=== PATIENT | female | born 1995 | race Caucasian/White ===

== ENCOUNTER 2017-08-01 14:40 | Inpatient (IN) | payer OTHER, SELFPAY ==
[2017-08-04 19:19] VITALS: BP 107/68; PULSE 100; RESP 16; TEMP 37.3; O2SAT 100; BMI 27.8
--- NOTE | 2017-08-05 10:21 | HMH.DCSUM ---
General - General Admission date: 08/01/17 Discharge date: 08/05/17 HPI HPI: She is a 22-year-old 1 now para 1 who was 40 weeks gestational age. She was started on Cervidil and subsequently to progress beyond 6 cm. As results that she had a section for pelvic disproportion. Objective Vital signs: Temp Pulse Resp BP Pulse Ox 99.1 F 100 H 16 107/68 100 08/04/17 19:19 08/04/17 19:19 08/04/17 19:19 08/04/17 19:19 08/04/17 19:19 Narrative: She appears well although somewhat pale. She is eating and drinking and ambulating Hospital Course Hospital Course: She has done well post operatively and has remained afebrile throughout her hospitalization. She is eating and drinking and ambulating. She is breast-feeding. Her lochia is normal. Results Labs on day of discharge: Labs from last 24 hours 08/03/17 08/02/17 08/02/17 06:00 16:00 09:20 WBC RBC Hgb 9.6 L D Hct 29.0 L MCV RDW Plt Count MPV Gran % Gran # Lymphocytes % Monocytes % Eosinophils % Basophils % Lymphocytes # Monocytes # Eosinophils # Basophils # PUBS MCHC Cord Blood pH 7.32 L Sodium Potassium Chloride Carbon Dioxide BUN Creatinine Estimated GFR (MDRD) Glucose Calcium Urine Color YELLOW Urine Appearance SL CLOUDY Urine pH 6.5 Ur Specific [place] 1.010 Urine Protein NEGATIVE Urine Ketones NEGATIVE Urine Blood TRACE-INTACT Urine Nitrate NEGATIVE Urine Bilirubin NEGATIVE Urine Urobilinogen 0.2 Ur Leukocyte Esterase NEGATIVE Urine RBC OCC Urine WBC OCC Ur Squamous Epith Cells OCC Urine Bacteria TRACE Urine Glucose NEGATIVE Antibody Screen MCH Miscellaneous Test Blood Type (Ref Lab) 08/01/17 08/01/17 08/01/17 17:45 17:45 17:45 WBC 8.9 RBC 4.14 L Hgb 12.4 Hct 36.8 L MCV 88.8 RDW 14.3 Plt Count 179 D MPV 9.8 Gran % 77.5 Gran # 6.9 Lymphocytes % 16.6 Monocytes % 4.5 Eosinophils % 1.0 Basophils % 0.3 Lymphocytes # 1.5 Monocytes # 0.4 Eosinophils # 0.1 Basophils # 0.0 PUBS MCHC 33.7 Cord Blood pH Sodium 137 Potassium 3.6 Chloride 103 Carbon Dioxide 23 BUN 8 Creatinine 0.5 L Estimated GFR (MDRD) 153 Glucose 104 Calcium 8.8 Urine Color Urine Appearance Urine pH Ur Specific [place] Urine Protein Urine Ketones Urine Blood Urine Nitrate Urine Bilirubin Urine Urobilinogen Ur Leukocyte Esterase Urine RBC Urine WBC Ur Squamous Epith Cells Urine Bacteria Urine Glucose Antibody Screen NEGATIVE MCH 30.0 Miscellaneous Test POSITIVE Blood Type (Ref Lab) A Meds Home Medications Medication Instructions Recorded Confirmed Type Vits96/Iron Fum/Folic 1 tab PO DAILY 08/04/17 08/04/17 History [ MVI w/Iron Tablet] Allergies Allergy/AdvReac Type Severity Reaction Status Date / Time ciprofloxacin [From CIPRO] Allergy Severe S-DIFF. Verified 08/04/17 18:22 BREATHING peanut Allergy Severe Hives Verified 08/04/17 18:22 diphenhydramine Allergy Unknown Hives Verified 08/04/17 18:22 Disposition Disposition: Home, Self-Care
--- NOTE | 2017-08-05 10:24 | P.DS_ITS ---
General - General Admission date: 08/01/17 Discharge date: 08/05/17 HPI HPI: She is a 22-year-old 1 now para 1 who was 40 weeks gestational age. She was started on Cervidil and subsequently to progress beyond 6 cm. As results that she had a section for pelvic disproportion. Objective Vital signs: Temp Pulse Resp BP Pulse Ox 99.1 F 100 H 16 107/68 100 08/04/17 19:19 08/04/17 19:19 08/04/17 19:19 08/04/17 19:19 08/04/17 19:19 Narrative: She appears well although somewhat pale. She is eating and drinking and ambulating Hospital Course Hospital Course: She has done well post operatively and has remained afebrile throughout her hospitalization. She is eating and drinking and ambulating. She is breast- feeding. Her lochia is normal. Results Labs on day of discharge: Labs from last 24 hours 08/03/17 08/02/17 08/02/17 06:00 16:00 09:20 WBC RBC Hgb 9.6 L D Hct 29.0 L MCV RDW Plt Count MPV Gran % Gran # Lymphocytes % Monocytes % Eosinophils % Basophils % Lymphocytes # Monocytes # Eosinophils # Basophils # PUBS MCHC Cord Blood pH 7.32 L Sodium Potassium Chloride Carbon Dioxide BUN Creatinine Estimated GFR (MDRD) Glucose Calcium Urine Color YELLOW Urine Appearance SL CLOUDY Urine pH 6.5 Ur Specific [place] 1.010 Urine Protein NEGATIVE Urine Ketones NEGATIVE Urine Blood TRACE-INTACT Urine Nitrate NEGATIVE Urine Bilirubin NEGATIVE Urine Urobilinogen 0.2 Ur Leukocyte Esterase NEGATIVE Urine RBC OCC Urine WBC OCC Ur Squamous Epith Cells OCC Urine Bacteria TRACE Urine Glucose NEGATIVE Antibody Screen MCH Miscellaneous Test Blood Type (Ref Lab) 08/01/17 08/01/17 08/01/17 17:45 17:45 17:45 WBC 8.9 RBC 4.14 L Hgb 12.4 Hct 36.8 L MCV 88.8 RDW 14.3 Plt Count 179 D MPV 9.8 Gran % 77.5 Gran # 6.9 Lymphocytes % 16.6 Monocytes % 4.5 Eosinophils % 1.0 Basophils % 0.3 Lymphocytes # 1.5 Monocytes # 0.4 Eosinophils # 0.1 Basophils # 0.0 PUBS MCHC 33.7 Cord Blood pH Sodium 137 Potassium 3.6 Chloride 103 Carbon Dioxide 23 BUN 8 Creatinine 0.5 L Estimated GFR (MDRD) 153 Glucose 104 Calcium 8.8 Urine Color Urine Appearance Urine pH Ur Specific [place] Urine Protein Urine Ketones Urine Blood Urine Nitrate Urine Bilirubin Urine Urobilinogen Ur Leukocyte Esterase Urine RBC Urine WBC Ur Squamous Epith Cells Urine Bacteria
== END 2017-08-05 13:30 | disposition home or self-care (01) | DRG 765 ==
PROVIDERS: Admitting Provider Nurse Practitioner Obstetrics & Gynecology; Visit Provider Nurse Practitioner Obstetrics & Gynecology
DX: O65.4 Obstructed labor due to fetopelvic disproportion, unspecified (principal); O41.03X0 Oligohydramnios, third trimester, not applicable or unspecified; Z37.0 Single live birth; Z3A.40 40 weeks gestation of pregnancy
CPT/HCPCS: 59514; 36415; 59025; 80048; 81001; 82800; 85014; 85018; 85025; 86850; 86900; 86901

== ENCOUNTER → 2017-12-27 08:55 | Outpatient (CLI) | payer OTHER, SELFPAY ==
[2017-12-27 09:32] LABS: Basophils # 0.1 K/mm3 (0-0.2); Basophils % 0.8 % (0.1-2.0); Eosinophils # 0.1 K/mm3 (0.0-0.4); Eosinophils % 1.6 % (0.1-12.0); Hematocrit 44.1 % (37.0-47.0); Hemoglobin 13.7 g/dL (12.2-16.2); Lymphocytes # 1.9 K/mm3 (0.7-4.5); Lymphocytes % 25.3 K/mm3 (10-50); Mean Corpuscular HGB Conc 31.2 g/dL (31.8-35.4); Mean Corpuscular Hemoglobin 26.5 pg (27.0-31.2); Mean Corpuscular Volume 84.9 fl (81-99); Mean Platelet Volume 7.6 fl (7.4-10.4); Monocytes # 0.4 K/mm3 (0.1-1.0); Monocytes % 4.9 % (1.7-9.3); Neutrophils # 5.1 K/mm3 (1.8-7.8); Neutrophils % 67.4 % (37.0-80.0); Platelet Count 334 K/mm3 (142-424); Red Blood Count 5.19 M/mm3 (4.20-5.40); Red Cell Distribution Width 13.8 % (11.5-17.5); White Blood Count 7.6 K/mm3 (4.8-10.8)
[2017-12-27 10:52] LABS: Alanine Aminotransferase 20 U/L (12-78); Albumin Level 4.7 gm/dL (3.4-5.0); Albumin/Globulin Ratio 1.4 (1.1-1.8); Alkaline Phosphatase 81 U/L (46-116); Anion Gap 15.1 mEq/L (5-15); Aspartate Amino Transferase 10 U/L (15-37); Bilirubin,Total 0.5 mg/dL (0.2-1.0); Blood Urea Nitrogen 10 mg/dL (7-18); Calcium 10.1 mg/dL (8.5-10.1); Carbon Dioxide 26 mmol/L (21.0-32.0); Chloride 104 mmol/L (98-107); Creatinine,Serum 0.64 mg/dL (0.55-1.02); Estimated Glomerular Filt Rate 115 ml/min (>60); GFR (African American) 139 ML/MIN (>60); Globulin 3.3 gm/dl (1.3-3.2); Glucose 85 mg/dL (74-106); Lipase 139 u/L (73-393); Potassium 4.1 mmoL/L (3.5-5.1); Sodium 141 mmol/L (136-145)
[2017-12-28 19:42] LABS: C difficile Toxins AB, EIA Negative (Negative)
[2017-12-31 15:55] LABS: H. pylori Breath Test Negative (Negative)
== END ==
PROVIDERS: Visit Provider Nurse Practitioner Family
DX: R10.84 Generalized abdominal pain (principal)
CPT/HCPCS: 36415; 80053; 83013; 83690; 85025; 87045; 87324

== ENCOUNTER → 2018-05-22 14:40 | Outpatient (CLI) | payer OTHER, SELFPAY ==
--- NOTE | 2018-05-22 14:42 | CT_ITS ---
CT head/brain wo con HISTORY: Severe headache ITS.REASON: MIGRAINES ORDERING PHYSICIAN: Anais Valdez PATIENT AGE: 22 years COMPARISON: 01 27 17 TECHNIQUE: Axial images obtained without contrast. Brain and bone windows reviewed. All CT scans at the facility use one or more dose reduction, viz: automated exposure control, ma/kV adjustment per patient size (including targeted exams where dose is matched to indication, i.e. head), or iterative reconstruction technique. FINDINGS: No midline shift, mass effect, intracranial hemorrhage, hydrocephalus, or extra-axial fluid collection is evident. The calvarium has an unremarkable appearance. No mastoid effusion. No sinus air-fluid levels.. IMPRESSION: Negative CT head without contrast. No acute finding
== END ==
PROVIDERS: Family Provider Nurse Practitioner Family; PCP Internal Medicine Adolescent Medicine; Visit Provider Nurse Practitioner Family
DX: G43.909 Migraine, unspecified, not intractable, without status migrainosus (principal)
CPT/HCPCS: 70450

== ENCOUNTER 2018-07-10 09:00 | Outpatient (RCR) | payer OTHER, SELFPAY | END 2018-07-10 09:10 | disposition home or self-care (01) | LOC: PT 09:00 | PROVIDERS: Visit Provider Nurse Practitioner Family | DX: M54.42 Lumbago with sciatica, left side (principal) | CPT/HCPCS: 97110; 97140; 97163 ==

== ENCOUNTER → 2018-11-27 09:38 | Outpatient (CLI) | payer OTHER, SELFPAY ==
--- NOTE | 2018-11-27 09:43 | XR_ITS ---
XR chest 2V HISTORY: ITS.REASON: DYSPNEA ORDERING PHYSICIAN: Anais Valdez PATIENT AGE: 23 years COMPARISON: 08/02/2018 FINDINGS: The cardiomediastinal silhouette and pulmonary vascularity are within normal limits. The lungs are clear without infiltrates, suspicious nodules, or pleural effusions. Calcified granuloma left upper lobe No acute bony abnormalities. IMPRESSION: No change with no acute finding
== END ==
PROVIDERS: PCP Nurse Practitioner Family; Visit Provider Nurse Practitioner Family
DX: R06.00 Dyspnea, unspecified (principal)
CPT/HCPCS: 71046

== ENCOUNTER 2020-01-20 16:37 | Emergency (ER) | payer MEDICAID, SELFPAY ==
[2020-01-20 16:38] VITALS: BP 115/75; PULSE 86; RESP 17; TEMP 36.9; O2SAT 100; BMI 21.6
[2020-01-20 17:07] LABS: UTC Strep Screen (Rapid) Negative (Negative)
--- NOTE | 2020-01-20 17:08 | HMH.EDUTC ---
[facility] [place] Disposition Clinical Impression: Sore throat Disposition: Home, Self-Care Condition on Discharge: Good Instructions: DI for Aphthous Ulcers (Canker Sores), Canker Sores (Alternative Therapy), Azithromycin Additional Instructions: *Monitor Temp, Over the counter Motrin or Tylenol as directed/as needed Tylenol every 4 hours and Motrin every 6 hours (as long as your family doctor has told you that you can take it) for fever or pain. and straight to ER if unable to lower temp less than 101.0 after medication given *Warm salt water gargles may help to soothe the throat *Throat Lozenges *Warm fluids like tea with honey may help to soothe the throat *Sleep elevated *Humidifier/Vaporizer Follow up with dentist for further evaluation Follow up with PCP if no improvement or any worsening of symptoms Your throat swab was sent for culture. Those results are typically sent to your primary care. Be sure to follow up in 2-3 days with your family doctor/primary care physician if no improvement so they can review those result and treat if necessary. If you don?t have a primary care doctor, I recommend you get one but in the mean time, you will have to return to a walk in clinic Follow up IMMEDIATELY for new or worsening symptoms or no Noticeable improvement over the next 48-72 hours. 911 for difficulty breathing or swallowing Prescriptions: Azithromycin [Z-Irineo 250mg Tab] 250 mg PO DIRECTED #6 tab Transmission Status: Pending to [id number] Referrals: Anais Valdez [Primary Care Provider] - As needed Gabriel Reed [Referring] - Time of Disposition: 17:18 Medical Decision Making - Fredi Inquiry Pt receiving controlled substance: No Fredi was queried for this patient: No Vital Signs: 01/20/20 16:38 Temperature 98.4 F Temperature Source Oral Pulse Rate [Right] 86 Respiratory Rate 17 Blood Pressure [Right Arm] 115/75 Blood Pressure Mean [Right Arm] 88 02 Sat by Pulse Oximetry 100 - Lab Data Lab Results 01/20/20 16:51: Strep Scn Rapid Clinic Negative Orders (Tests/Meds): ORDERS Category Date Time Status Strep Screen Confirmation Stat Micro 01/20/20 16:51 Received [facility] [place] HPI - General Stated complaint: Mouth pain Time Seen by Provider: 01/20/20 17:08 Mode of Arrival: Ambulatory Limitations: No Limitations Description of Symptoms (Recalled from Triage Doc. by RN): Blisters and pain to the inside of her mouth and tongue for 2 weeks HEENT Symptoms (Recalled from RN notes): Yes Resp Symptoms (Recalled from RN notes): No Skin Symptoms (Recalled from RN notes): No MS Symptoms (Recalled from RN notes): No Functional Status (Recalled from RN notes): na - History of Present Illness Provider Complaint: Patient states that she has been having blisters and burning on and off inside her mouth for about 2 weeks State that she seen her PCP and they give her some Nystatin and 2 days of antibiotics States that it got better then now it is aggrivating her States that she feels like her mouth is raw and having swelling in her lymph nodes and sore throat so she came in to get it checked - Related Data Home Medications Medication Instructions Recorded Confirmed Fluconazole 150 mg PO DIRECTED 01/22/19 01/22/19 PARoxetine HCL [Paxil 10mg Tablet] 1 tab PO DAILY 01/22/19 01/22/19 Previous Rx's Medication Instructions Recorded Nitrofurantoin Monohyd/M-Cryst 100 mg PO BID 10 Days #20 cap 01/22/19 [Macrobid 100 mg Capsule] Phenazopyridine HCl [Pyridium 200 pow PO TID #6 tab 01/22/19 200mg Tablet] Fluconazole [Diflucan 150mg tab] 150 mg PO ONCE #1 tab 07/31/19 Nitrofurantoin Monohyd/M-Cryst 100 mg PO BID 10 Days #20 cap 07/31/19 [Macrobid 100 mg Capsule] Phenazopyridine HCl [Pyridium 200 pow PO TID #6 tab 07/31/19 200mg Tablet] Azithromycin [Z-Irineo 250mg Tab] 250 mg PO DIRECTED #6 tab 01/20/20 Allergies Allergy/AdvReac Type Severity Reaction Status Date
[2020-01-20 17:22] VITALS: BP 114/85; PULSE 87; RESP 20; TEMP 36.6; O2SAT 98
== END 2020-01-20 17:23 | disposition home or self-care (01) ==
PROVIDERS: Emergency Provider Nurse Practitioner; PCP Nurse Practitioner Family
DX: J02.0 Streptococcal pharyngitis (principal); F17.210 Nicotine dependence, cigarettes, uncomplicated; Z90.09 Acquired absence of other part of head and neck
CPT/HCPCS: 87880; 99201

== ENCOUNTER → 2020-03-14 15:05 | Outpatient (CLI) | payer MEDICAID, SELFPAY ==
[2020-03-14 15:16] LABS: Basophils # 0.1 K/mm3 (0-0.2); Basophils % 0.9 % (0.1-2.0); Eosinophils # 0.2 K/mm3 (0.0-0.4); Eosinophils % 3.6 % (0.1-12.0); Hematocrit 29.9 % (37.0-47.0); Hemoglobin 9.3 g/dL (12.2-16.2); Lymphocytes # 2.1 K/mm3 (0.7-4.5); Lymphocytes % 33.3 % (10-50); Mean Corpuscular HGB Conc 31.1 g/dL (31.8-35.4); Mean Corpuscular Hemoglobin 23.3 pg (27.0-31.2); Mean Corpuscular Volume 74.9 fl (81-99); Mean Platelet Volume 8.8 fl (7.4-10.4); Monocytes # 0.3 K/mm3 (0.1-1.0); Neutrophils # 3.5 K/mm3 (1.8-7.8); Neutrophils % 57.1 % (37.0-80.0); Platelet Count 300 K/mm3 (142-424); Red Blood Count 3.99 M/mm3 (4.20-5.40); Red Cell Distribution Width 14.8 % (11.5-17.5); White Blood Count 6.2 K/mm3 (4.8-10.8)
== END ==
PROVIDERS: Visit Provider Nurse Practitioner Obstetrics & Gynecology
DX: Z01.419 Encounter for gynecological examination (general) (routine) without abnormal findings (principal)
CPT/HCPCS: 36415; 85025

== ENCOUNTER 2020-06-05 12:58 | Emergency (ER) | payer MEDICAID, SELFPAY ==
[2020-06-05 13:11] VITALS: BP 122/71; PULSE 94; RESP 19; TEMP 36.8; O2SAT 98; BMI 20.9
--- NOTE | 2020-06-05 13:20 | HMH.EDUTC ---
[facility] [place] Clinical Impression: Encounter for laboratory testing for COVID-19 virus Disposition: Home, Self-Care Condition on Discharge: Good Instructions: Preventing the Spread of Coronavirus Discharge Instructions Additional Instructions: *Monitor Temp, Over the counter Motrin or Tylenol as directed/as needed Tylenol every 4 hours and Motrin every 6 hours (as long as your family doctor has told you that you can take it) for fever or pain. and straight to ER if unable to lower temp less than 101.0 after medication given *Warm salt water gargles may help to soothe the throat *Throat Lozenges *Warm fluids like tea with honey may help to soothe the throat *Sleep elevated *Humidifier/Vaporizer Follow up IMMEDIATELY for new or worsening symptoms or no Noticeable improvement over the next 48-72 hours. 911 for difficulty breathing or swallowing You was tested for today for COVID19 your test result should be back later this evening, you may call back later this evening to see if your test results are back and the result You was given a handout with instructions for Self Quarantine and Self isolation for while you wait on test results and what to do if they are positive Referrals: Anais Valdez [Primary Care Provider] - Forms: Work/School Release Medical Decision Making - Fredi Inquiry Pt receiving controlled substance: No Fredi was queried for this patient: No Vital Signs: 06/05/20 13:11 Temperature 98.2 F Temperature Source Oral Pulse Rate [Radial] 94 H Respiratory Rate 19 Blood Pressure [Right Arm] 122/71 Blood Pressure Mean [Right Arm] 88 Blood Pressure Source [Right Arm] Automatic Cuff Blood Pressure Position [Right Arm] Sitting 02 Sat by Pulse Oximetry 98 Oxygen Delivery Method Room Air - Lab Data Lab results reviewed: Yes: I reviewed the patient's lab results. Orders (Tests/Meds): ORDERS Category Date Time Status Covid-19 Nasal PCR ([facility]) Routine Lab 06/05/20 13:10 Received [facility] [place] - General Stated complaint: covid test Time Seen by Provider: 06/05/20 13:20 Mode of Arrival: Ambulatory Source of Information: Patient Limitations: No Limitations Description of Symptoms (Recalled from Triage Doc. by RN): covid test HEENT Symptoms (Recalled from RN notes): No Resp Symptoms (Recalled from RN notes): No Skin Symptoms (Recalled from RN notes): No MS Symptoms (Recalled from RN notes): No Functional Status (Recalled from RN notes): wnl - History of Present Illness Provider Complaint: Patient states that she was exposed to coworker on and eat lunch with her that tested positive for COVID on Saturday States that she also had flu shot on Saturday and has been having body aches, chills and nasal congestion so she come in to get tested to make sure she didnt have COVID - Related Data Home Medications Medication Instructions Recorded Confirmed PARoxetine HCL [Paxil 10mg Tablet] 1 tab PO DAILY 01/22/19 03/14/20 norelgestromin 150 mcg-e.estradiol 1 patch TRANSDERMA each 03/14/20 03/14/20 35 mcg/24 hr weekly transderm patch Previous Rx's Medication Instructions Recorded Phenazopyridine HCl [Pyridium 200 pow PO TID #6 tab 01/22/19 200mg Tablet] levonorgestrel-ethinyl estradiol 1 tab PO DAILY #84 tab 03/14/20 0.1 mg-20 mcg tablet Allergies Allergy/AdvReac Type Severity Reaction Status Date / Time No Known Allergies Allergy Verified 03/14/20 13:46 - Worker's Comp Is this a Worker's Comp case?: No [facility] History - Hepatitis A Screen Drug use history?: No High risk sexual behaviors?: No History of sexually transmitted infection?: No Currently employed?: No Childcare worker?: No Do you have indoor plumbing?: Yes Do you have electricity?: Yes Attestation statement:: This patient has been screened for Hepatitis A risk factors. I have reviewed the patient's past medical history: Yes Medical History: Denies:: Cancer, Diabetes Mellitus Type 1, Di
[2020-06-05 13:41] VITALS: BP 122/71; PULSE 94; RESP 19; TEMP 36.8; O2SAT 98
[2020-06-05 19:03] LABS: UTC Influenza A Antigen Negative (Negative)
[2020-06-05 19:04] LABS: UTC Influenza B Antigen Negative (Negative)
== END 2020-06-05 13:42 | disposition home or self-care (01) ==
PROVIDERS: Emergency Provider Nurse Practitioner; PCP Nurse Practitioner Family
DX: Z20.828 Contact with and (suspected) exposure to other viral communicable diseases (principal); F17.210 Nicotine dependence, cigarettes, uncomplicated
CPT/HCPCS: 87804; 99201; U0003

== ENCOUNTER → 2020-07-19 15:26 | Outpatient (CLI) | payer MEDICAID, SELFPAY ==
[2020-07-19 15:42] LABS: Basophils # 0.1 K/mm3 (0-0.2); Basophils % 0.7 % (0.1-2.0); Eosinophils # 0.2 K/mm3 (0.0-0.4); Eosinophils % 1.9 % (0.1-12.0); Hematocrit 40.9 % (37.0-47.0); Hemoglobin 12.9 g/dL (12.2-16.2); Lymphocytes # 2.5 K/mm3 (0.7-4.5); Lymphocytes % 28.4 % (10-50); Mean Corpuscular HGB Conc 31.6 g/dL (31.8-35.4); Mean Corpuscular Hemoglobin 27.3 pg (27.0-31.2); Mean Corpuscular Volume 86.5 fl (81-99); Mean Platelet Volume 8.1 fl (7.4-10.4); Monocytes # 0.5 K/mm3 (0.1-1.0); Monocytes % 5.2 % (1.7-9.3); Neutrophils # 5.6 K/mm3 (1.8-7.8); Neutrophils % 63.8 % (37.0-80.0); Platelet Count 293 K/mm3 (142-424); Red Blood Count 4.72 M/mm3 (4.20-5.40); Red Cell Distribution Width 14.3 % (11.5-17.5); White Blood Count 8.8 K/mm3 (4.8-10.8)
== END ==
PROVIDERS: Visit Provider Nurse Practitioner Obstetrics & Gynecology
DX: D64.9 Anemia, unspecified (principal)
CPT/HCPCS: 36415; 85025

== ENCOUNTER → 2020-12-30 18:05 | Outpatient (CLI) | payer MEDICAID, SELFPAY ==
[2020-12-30 18:19] LABS: Basophils # 0.1 K/mm3 (0-0.2); Basophils % 0.8 % (0.1-2.0); Eosinophils # 0.2 K/mm3 (0.0-0.4); Eosinophils % 1.7 % (0.1-12.0); Hemoglobin 12.4 g/dL (12.2-16.2); Lymphocytes # 2.6 K/mm3 (0.7-4.5); Lymphocytes % 29.5 % (10-50); Mean Corpuscular HGB Conc 33.5 g/dL (31.8-35.4); Mean Corpuscular Hemoglobin 28.6 pg (27.0-31.2); Mean Corpuscular Volume 85.2 fl (81-99); Mean Platelet Volume 8.3 fl (7.4-10.4); Monocytes # 0.4 K/mm3 (0.1-1.0); Monocytes % 4.4 % (1.7-9.3); Neutrophils # 5.6 K/mm3 (1.8-7.8); Neutrophils % 63.6 % (37.0-80.0); Platelet Count 286 K/mm3 (142-424); Red Blood Count 4.34 M/mm3 (4.20-5.40); Red Cell Distribution Width 12.9 % (11.5-17.5); White Blood Count 8.7 K/mm3 (4.8-10.8)
[2020-12-30 18:31] LABS: Alanine Aminotransferase 9 U/L (12-78); Albumin Level 4.7 g/dl (3.5-5.0); Alkaline Phosphatase 54 U/L (38-126); Anion Gap 10.9 mEq/L (5-15); Aspartate Amino Transferase 19 U/L (14-36); Bilirubin,Total 0.3 mg/dl (0.2-1.3); Blood Urea Nitrogen 13 mg/dl (7-17); Calcium 9.2 mg/dl (8.4-10.2); Carbon Dioxide 27 mmol/L (22.0-30.0); Chloride 104 mmol/L (98-107); Estimated Glomerular Filt Rate 121 ml/min (>60); GFR (African American) 146 ML/MIN (>60); Globulin 2.3 g/dL (1.3-3.2); Glucose 103 mg/dl (74-100); Potassium 3.9 mmoL/L (3.5-5.1); Sodium 138 mmol/L (136-145)
[2020-12-30 18:38] LABS: 25-OH Vitamin D, Total 35.6 ng/mL (30-100)
[2020-12-30 19:02] LABS: Thyroid Stimulating Hormone 1.13 uIU/mL (0.465-4.68)
[2020-12-30 19:21] LABS: Vitamin B12 184 pg/mL (239-931)
== END ==
PROVIDERS: Visit Provider Nurse Practitioner Family
DX: R53.83 Other fatigue (principal)
CPT/HCPCS: 80053; 82306; 82607; 84443; 85025

== ENCOUNTER → 2021-07-05 11:43 | Outpatient (CLI) | payer MEDICAID, SELFPAY | PROVIDERS: Visit Provider Internal Medicine Adolescent Medicine | DX: Z20.822 Contact with and (suspected) exposure to COVID-19 (principal); R05.9 Cough, unspecified | CPT/HCPCS: C9803; U0003; U0005 ==

== ENCOUNTER 2021-11-20 10:37 | Emergency (ER) | payer MEDICAID, SELFPAY ==
[2021-11-20 10:38] VITALS: BP 126/74; PULSE 91; RESP 15; TEMP 36.4; O2SAT 100; BMI 24.6
--- NOTE | 2021-11-20 10:56 | HMH.EDGENADL ---
ED Disposition Clinical Impression: Nausea/vomiting in UTI (urinary tract infection) Qualifiers: Urinary tract infection type: acute cystitis Hematuria presence: with hematuria Qualified Code(s): N30.01 - Acute cystitis with hematuria Disposition: Home, Self-Care Condition on Discharge: Good Instructions: DI for Urinary Tract Infection (UTI) Prescriptions: cephALEXin [Cephalexin 500mg Tab] 500 mg PO BID #14 tab Transmission Status: Pending to [facility] Doxylamine/Pyridoxine HCl [Diclegis 10mg-10mg tablet] 1 each PO BID PRN #20 tab PRN Reason: Vomiting Transmission Status: Pending to [facility] Referrals: Anais Valdez [Primary Care Provider] - - Critical Care Critical Care Time: No Attestation: On 11/20/21, the high probability of a clinically significant, sudden or life threatening deterioration of the following system(s) required my full and direct attention, intervention and personal management. The time I documented below is in addition to time spent performing reported procedures but includes the following listed in this critical care notation. Medical Decision Making - Medical Records Medical records reviewed: Yes: I reviewed the patient's medical records. - Fredi Inquiry Pt receiving controlled substance: No Vital Signs: 11/20/21 10:38 Temperature 97.6 F Temperature Source Oral Pulse Rate [Right Radial] 91 H Respiratory Rate 15 Blood Pressure [Right Arm] 126/74 Blood Pressure Mean [Right Arm] 91 Blood Pressure Source [Right Arm] Automatic Cuff Blood Pressure Position [Right Arm] Sitting 02 Sat by Pulse Oximetry 100 Oxygen Delivery Method Room Air - Lab Data Lab Results 11/20/21 10:45: Urine Color Yellow, Urine Appearance Cloudy, Urine pH 7.5, Ur Specific [place] 1.015, Urine Protein Negative, Urine Glucose (UA) Negative, Urine Ketones Negative, Urine Blood 2+, Urine Nitrate Positive, Urine Bilirubin Negative, Urine Urobilinogen 1.0, Ur Leukocyte Esterase 1+ A, Urine RBC 5-10, Urine WBC 3-5, Ur Squamous Epith Cells 5-10, Urine Bacteria 4+ 11/20/21 10:45: Urine HCG, Qual Positive 11/20/21 11:00: WBC 7.8, RBC 4.25, Hgb 12.1 L, Hct 36.6 L, MCV 86.2, MCH 28.4, MCHC 33.0, RDW 14.2, Plt Count 264, MPV 8.2, Neut % (Auto) 86.1 H, Lymph % (Auto) 9.8 L, [place] % (Auto) 2.6, Eos % (Auto) 0.5, Baso % (Auto) 1.1, Neut # (Auto) 6.8, Lymph # (Auto) 0.8, [place] # (Auto) 0.2, Eos # (Auto) 0.0, Baso # (Auto) 0.1, Total Counted 100, Neutrophils % (Manual) 85 H, Lymphocytes % (Manual) 11, Monocytes % (Manual) 3, Basophils % (Manual) 1.0, Platelet Estimate Normal, RBC Morphology Normal 11/20/21 11:00: Sodium 135 L, Potassium 3.4 L, Chloride 101, Carbon Dioxide 28, Anion Gap 9.4, BUN 9, Creatinine 0.40 L, Estimated Creat Clear 224, Estimated GFR 191, Est GFR ( Amer) 232, Glucose 108 H, Calcium 8.6, Total Bilirubin 0.5, AST 28, ALT 18, Alkaline Phosphatase 53, Total Protein 7.1, Albumin 4.2, Globulin 2.9, Albumin/Globulin Ratio 1.4, Lipase 33 11/20/21 11:00: HCG, Quant [id number] H Result diagrams: 11/20/21 11:00 11/20/21 11:00 Orders (Tests/Meds): ED MEDICATIONS Discontinued Medications Generic Name Dose Route Start Last Admin Trade Name Freq PRN Reason Stop Dose Admin Diphenhydramine HCl 25 mg 11/20/21 10:55 11/20/21 11:06 Diphenhydramine 50mg/Ml Vial IV 11/20/21 10:56 25 mg ONCE ONE Administration Lactated Ringer's 1,000 mls @ 999 mls/hr 11/20/21 11:00 11/20/21 11:06 Lactated Ringer's 1000 Ml Bag IV 11/20/21 12:00 999 mls/hr .[id number] JULIANNA Administration ORDERS Category Date Time Status Urine Culture Stat Micro 11/20/21 10:45 Received - Reevaluation(s) Time: 13:09 Reevaluation #1: On reevaluation, the patient is feeling much better. Repeat abdominal examination is benign. No acute abdomen. She is tolerating oral intake. Patient's urinalysis is contaminated, however no significant amount of bacteria. She will be treated for this. Tessie
[2021-11-20 11:12] LABS: Chloride 101 mmol/L (98-107); Potassium 3.4 mmoL/L (3.5-5.1); Sodium 135 mmol/L (136-145)
[2021-11-20 11:15] LABS: Alanine Aminotransferase 18 U/L (12-78); Albumin Level 4.2 g/dl (3.5-5.0); Albumin/Globulin Ratio 1.4 (1.1-1.8); Alkaline Phosphatase 53 U/L (38-126); Anion Gap 9.4 mEq/L (5-15); Aspartate Amino Transferase 28 U/L (14-36); Bilirubin,Total 0.5 mg/dl (0.2-1.3); Blood Urea Nitrogen 9 mg/dl (7-17); Calcium 8.6 mg/dl (8.4-10.2); Carbon Dioxide 28 mmol/L (22.0-30.0); Creatinine Clearance Estimated 224 mL/min (50-200); Estimated Glomerular Filt Rate 191 ml/min (>60); GFR (African American) 232 ML/MIN (>60); Globulin 2.9 g/dL (1.3-3.2); Glucose 108 mg/dl (74-100); Lipase 33 U/L (23-300); Total Protein,Serum 7.1 g/dl (6.3-8.2)
[2021-11-20 11:17] LABS: Basophils # 0.1 K/mm3 (0-0.2); Basophils % 1.1 % (0.1-2.0); Eosinophils % 0.5 % (0.1-12.0); Hematocrit 36.6 % (37.0-47.0); Hemoglobin 12.1 g/dL (12.2-16.2); Lymphocytes # 0.8 K/mm3 (0.7-4.5); Lymphocytes % 9.8 % (10-50); Mean Corpuscular Hemoglobin 28.4 pg (27.0-31.2); Mean Corpuscular Volume 86.2 fl (81-99); Mean Platelet Volume 8.2 fl (7.4-10.4); Monocytes # 0.2 K/mm3 (0.1-1.0); Monocytes % 2.6 % (1.7-9.3); Neutrophils # 6.8 K/mm3 (1.8-7.8); Neutrophils % 86.1 % (37.0-80.0); Platelet Count 264 K/mm3 (142-424); Red Blood Count 4.25 M/mm3 (4.20-5.40); Red Cell Distribution Width 14.2 % (11.5-17.5); White Blood Count 7.8 K/mm3 (4.8-10.8)
[2021-11-20 11:20] LABS: MANUAL DIFFERENTIAL MANUAL DIFFERENTIAL (MANUAL DIFF)
[2021-11-20 12:16] LABS: Lymphocytes % 11 % (10-50); Monocytes % 3 % (2-9); Neutrophils % 85 % (42-76); Total Cells Counted 100
[2021-11-20 12:17] LABS: Platelet Estimate Normal; RBC Morphology Normal
[2021-11-20 12:20] LABS: HCG,Quantitative 139680 mIU/ml (0-5.42)
--- NOTE | 2021-11-20 12:35 | PC.NURSE ---
Pt attempting to provide urine sample at this time.
[2021-11-20 12:40] LABS: Microscopic, Urine URINE MICROSCOPIC (MICROSCOPIC)
[2021-11-20 12:44] LABS: Appearance,Urine CLOUDY (Clear); Bilirubin,Urine Negative (Negative); Blood, Urine 2+ (Negative); Color,Urine YELLOW (Yellow); Glucose,Urine (UA) Negative (Negative); Ketones,Urine Negative (Negative); Leukocyte Esterase,Urine 1+ (Negative); Nitrate,Urine POSITIVE (Negative); PH,Urine 7.5 (5.0-8.5); Protein,Urine Negative (Negative); Specific Gravity, Urine 1.015 (1.005-1.030)
[2021-11-20 12:45] LABS: Urine Pregnancy, HCG Qual. Positive (Negative)
[2021-11-20 13:06] LABS: Bacteria,Urine 4+ /lpf
[2021-11-20 13:21] VITALS: BP 105/67; PULSE 83; RESP 15; TEMP 36.8; O2SAT 100
== END 2021-11-20 13:21 | disposition home or self-care (01) ==
PROVIDERS: Emergency Provider Emergency Medicine; PCP Nurse Practitioner Family
DX: O23.41 Unspecified infection of urinary tract in pregnancy, first trimester (principal); N30.01 Acute cystitis with hematuria; O21.9 Vomiting of pregnancy, unspecified; O99.332 Smoking (tobacco) complicating pregnancy, second trimester; F17.210 Nicotine dependence, cigarettes, uncomplicated; Z79.899 Other long term (current) drug therapy; Z3A.10 10 weeks gestation of pregnancy
CPT/HCPCS: 80053; 81001; 81025; 83690; 84702; 85007; 85025; 87086; 87088; 87186; 96361; 96365; 96374; 96375; 99285

== ENCOUNTER → 2021-12-08 13:29 | Outpatient (CLI) | payer MEDICAID, SELFPAY ==
--- NOTE | 2021-12-08 13:33 | US_ITS ---
FINAL REPORT CLINICAL HISTORY: US OB before 14 wks for DATES /Confirmation FINDINGS: Sonographic images of the pelvis were obtained. A single, living intrauterine is noted. A yolk sac is present and measures 0.37 cm. [place] to rump length measures 4.84 cm which corresponds to 11 weeks 5 days gestation. Heartbeat is identified and measures 157 beats per minute. The right ovary is within normal limits. The left ovary is within normal limits. IMPRESSION: Single, living, intrauterine gestation with 11 weeks 5 days ultrasound age. Reviewed, Interpreted and Dictated by Jorge Alberto Naqvi MD Transcribed by Delphine Grimaldo Authenticated by Jorge Alberto Naqvi MD on 12/08/2021 04:36:45 PM [facility]
[2021-12-08 15:16] LABS: Basophils # 0.1 K/mm3 (0-0.2); Eosinophils % 0.3 % (0.1-12.0); Hematocrit 36.8 % (37.0-47.0); Hemoglobin 12.5 g/dL (12.2-16.2); Lymphocytes # 0.9 K/mm3 (0.7-4.5); Lymphocytes % 12.6 % (10-50); Mean Corpuscular Hemoglobin 28.6 pg (27.0-31.2); Mean Platelet Volume 8.5 fl (7.4-10.4); Monocytes # 0.2 K/mm3 (0.1-1.0); Monocytes % 3.6 % (1.7-9.3); Neutrophils # 5.6 K/mm3 (1.8-7.8); Neutrophils % 82.5 % (37.0-80.0); Platelet Count 302 K/mm3 (142-424); Red Blood Count 4.38 M/mm3 (4.20-5.40); Red Cell Distribution Width 14.6 % (11.5-17.5); White Blood Count 6.8 K/mm3 (4.8-10.8)
[2021-12-10 09:12] LABS: Hepatitis B Surface Antigen Negative (Negative); Hepatitis C Antibody <0.1 s/co ratio (0.0-0.9)
[2021-12-10 10:12] LABS: Rapid Plasma Reagin Ab Titer Non Reactive (NonRea<1:1)
[2021-12-10 11:12] LABS: HIV Screen 4th Generation wRfx Non Reactive (Non Reactive)
[2021-12-11 15:45] LABS: HSV 2 IgG Supplemental Testing Positive (Negative); HSV 2 IgG, Type Spec 1.18 index (0.00-0.90)
== END ==
PROVIDERS: PCP Nurse Practitioner Family; Visit Provider Nurse Practitioner Obstetrics & Gynecology
DX: O26.841 Uterine size-date discrepancy, first trimester (principal)
CPT/HCPCS: 36415; 76801; 85025; 86592; 86695; 86703; 86762; 86790; 86850; 87340; 87380; G0432

== ENCOUNTER → 2022-04-05 08:26 | Outpatient (CLI) | payer MEDICAID, SELFPAY ==
[2022-04-05 08:56] LABS: Basophils % 0.3 % (0.1-2.0); Eosinophils # 0.1 K/mm3 (0.0-0.4); Eosinophils % 0.5 % (0.1-12.0); Hematocrit 32.9 % (37.0-47.0); Hemoglobin 10.2 g/dL (12.2-16.2); Lymphocytes # 1.9 K/mm3 (0.7-4.5); Lymphocytes % 15.2 % (10-50); Mean Corpuscular Hemoglobin 27.7 pg (27.0-31.2); Mean Corpuscular Volume 89.3 fl (81-99); Mean Platelet Volume 8.6 fl (7.4-10.4); Monocytes # 0.5 K/mm3 (0.1-1.0); Neutrophils # 9.9 K/mm3 (1.8-7.8); Platelet Count 312 K/mm3 (142-424); Red Blood Count 3.68 M/mm3 (4.20-5.40); Red Cell Distribution Width 15.3 % (11.5-17.5); White Blood Count 12.4 K/mm3 (4.8-10.8)
[2022-04-05 08:59] LABS: Glucose,Fasting 93 mg/dl (74-100)
[2022-04-05 11:14] LABS: Glucose 1 Hour 139 mg/dL (74-100)
== END ==
PROVIDERS: PCP Nurse Practitioner; Visit Provider Nurse Practitioner Obstetrics & Gynecology
DX: Z34.90 Encounter for supervision of normal pregnancy, unspecified, unspecified trimester (principal); Z3A.23 23 weeks gestation of pregnancy
CPT/HCPCS: 36415; 82951; 85025

== ENCOUNTER 2022-04-17 08:25 | Outpatient (CLI) | payer MEDICAID, SELFPAY ==
[2022-04-17 08:59] VITALS: BMI 27.4
[2022-04-17 09:16] LABS: Basophils # 0.1 K/mm3 (0-0.2); Basophils % 0.8 % (0.1-2.0); Eosinophils % 0.1 % (0.1-12.0); Hematocrit 33.4 % (37.0-47.0); Hemoglobin 10.6 g/dL (12.2-16.2); Lymphocytes # 1.1 K/mm3 (0.7-4.5); Lymphocytes % 6.6 % (10-50); Mean Corpuscular HGB Conc 31.6 g/dL (31.8-35.4); Mean Corpuscular Hemoglobin 28.1 pg (27.0-31.2); Mean Corpuscular Volume 88.9 fl (81-99); Mean Platelet Volume 9.1 fl (7.4-10.4); Monocytes # 0.4 K/mm3 (0.1-1.0); Monocytes % 2.5 % (1.7-9.3); Neutrophils # 14.6 K/mm3 (1.8-7.8); Platelet Count 316 K/mm3 (142-424); Red Blood Count 3.76 M/mm3 (4.20-5.40); Red Cell Distribution Width 16.8 % (11.5-17.5); White Blood Count 16.2 K/mm3 (4.8-10.8)
[2022-04-17 09:18] LABS: MANUAL DIFFERENTIAL MANUAL DIFFERENTIAL (MANUAL DIFF)
[2022-04-17 09:20] LABS: Alanine Aminotransferase 13 U/L (12-78); Albumin Level 3.7 g/dl (3.5-5.0); Albumin/Globulin Ratio 1.3 (1.1-1.8); Alkaline Phosphatase 105 U/L (38-126); Anion Gap 13.4 mEq/L (5-15); Aspartate Amino Transferase 25 U/L (14-36); Blood Urea Nitrogen 5 mg/dl (7-17); Calcium 8.7 mg/dl (8.4-10.2); Carbon Dioxide 26 mmol/L (22.0-30.0); Chloride 102 mmol/L (98-107); Creatinine Clearance Estimated 250 mL/min (50-200); Estimated Glomerular Filt Rate 191 ml/min (>60); GFR (African American) 232 ML/MIN (>60); Globulin 2.9 g/dL (1.3-3.2); Glucose 103 mg/dl (74-100); Potassium 3.4 mmoL/L (3.5-5.1); Sodium 138 mmol/L (136-145); Total Protein,Serum 6.6 g/dl (6.3-8.2)
[2022-04-17 09:28] LABS: Bilirubin,Total < 0.1 mg/dl (0.2-1.3)
[2022-04-17 09:41] VITALS: BP 103/53; PULSE 122; RESP 16; TEMP 36.6; O2SAT 100; BMI 28.1
[2022-04-17 09:42] LABS: Coronavirus 19, PCR Not Detected (NotDetected); Influenza A, PCR Not Detected (NotDetected); Influenza B, PCR Not Detected (NotDetected)
[2022-04-17 09:54] LABS: Lymphocytes % 9 % (10-50); Monocytes % 3 % (2-9); Neutrophils % 88 % (42-76); Total Cells Counted 100
[2022-04-17 09:55] LABS: Platelet Estimate Normal
[2022-04-17 09:56] LABS: Anisocytosis 1+; Hypochromasia 1+
== END 2022-04-17 11:59 | disposition home or self-care (01) ==
LOC: OBOUT 08:27 → OB 08:27
PROVIDERS: PCP Nurse Practitioner; Visit Provider Nurse Practitioner Obstetrics & Gynecology
DX: O26.893 Other specified pregnancy related conditions, third trimester (principal); Z3A.30 30 weeks gestation of pregnancy; R51.9 Headache, unspecified; R11.2 Nausea with vomiting, unspecified
CPT/HCPCS: 59025; 80053; 85007; 85025; 96365; 96367; C9803; G0463; J0595; J2405; U0003; U0005

== ENCOUNTER 2022-04-18 13:08 | Outpatient (CLI) | payer MEDICAID, SELFPAY ==
[2022-04-18 14:11] VITALS: BMI 27.4
[2022-04-18 14:34] LABS: Coronavirus 19, PCR Not Detected (NotDetected); Influenza A, PCR Not Detected (NotDetected); Influenza B, PCR Not Detected (NotDetected)
[2022-04-18 14:37] LABS: Basophils # 0.1 K/mm3 (0-0.2); Basophils % 0.4 % (0.1-2.0); Eosinophils % 0.1 % (0.1-12.0); Hematocrit 32.7 % (37.0-47.0); Hemoglobin 10.4 g/dL (12.2-16.2); Lymphocytes # 2.1 K/mm3 (0.7-4.5); Lymphocytes % 13.7 % (10-50); Mean Corpuscular HGB Conc 31.8 g/dL (31.8-35.4); Mean Corpuscular Hemoglobin 27.6 pg (27.0-31.2); Mean Corpuscular Volume 86.6 fl (81-99); Mean Platelet Volume 8.8 fl (7.4-10.4); Monocytes # 0.8 K/mm3 (0.1-1.0); Neutrophils # 12.3 K/mm3 (1.8-7.8); Neutrophils % 80.8 % (37.0-80.0); Platelet Count 326 K/mm3 (142-424); Red Blood Count 3.77 M/mm3 (4.20-5.40); Red Cell Distribution Width 16.5 % (11.5-17.5); White Blood Count 15.2 K/mm3 (4.8-10.8)
[2022-04-18 14:38] LABS: MANUAL DIFFERENTIAL MANUAL DIFFERENTIAL (MANUAL DIFF)
[2022-04-18 14:44] LABS: Microscopic, Urine URINE MICROSCOPIC (MICROSCOPIC)
[2022-04-18 14:45] LABS: D-Dimer 0.84 ug/mL (0.0-0.5)
[2022-04-18 14:46] LABS: Appearance,Urine CLEAR (Clear); Bilirubin,Urine Negative (Negative); Blood, Urine 1+ (Negative); Color,Urine YELLOW (Yellow); Glucose,Urine (UA) Negative (Negative); Ketones,Urine Negative (Negative); Leukocyte Esterase,Urine 1+ (Negative); Nitrate,Urine Negative (Negative); Protein,Urine Negative (Negative); Specific Gravity, Urine 1.015 (1.005-1.030); Urobilinogen,Urine 0.2 EU/dl (0.2)
[2022-04-18 14:51] LABS: Anion Gap 14.8 mEq/L (5-15); Blood Urea Nitrogen 5 mg/dl (7-17); Calcium 8.4 mg/dl (8.4-10.2); Carbon Dioxide 24 mmol/L (22.0-30.0); Chloride 96 mmol/L (98-107); Creatinine Clearance Estimated 250 mL/min (50-200); Estimated Glomerular Filt Rate 191 ml/min (>60); GFR (African American) 232 ML/MIN (>60); Glucose 83 mg/dl (74-100); Magnesium 1.5 mg/dl (1.6-2.3); Sodium 132 mmol/L (136-145); Uric Acid 3.3 mg/dl (2.5-6.2)
[2022-04-18 14:52] LABS: Alanine Aminotransferase 12 U/L (12-78); Aspartate Amino Transferase 26 U/L (14-36)
[2022-04-18 14:54] LABS: Potassium 2.8 mmoL/L (3.5-5.1)
--- NOTE | 2022-04-18 14:56 | PC.NURSE ---
Lab called with a critical at 1453 Potassium 2.8 Name, and lab value verified x2 Dr. French notified at this time.
[2022-04-18 14:57] LABS: Barbiturates Screen,Urine Positive ng/ml (<200); Benzodiazepines Screen,Urine Negative ng/ml (<200)
[2022-04-18 14:58] LABS: Amphetamine/Metha Screen,Urine Negative ng/ml (<1000)
[2022-04-18 14:58] LABS: Fibrinogen 563 mg/dL (229.9-363.5); Prothrombin Time 9.8 seconds (10.1-12.5)
[2022-04-18 14:59] LABS: Cannabinoid Screen,Urine Negative ng/ml (<50); Cocaine Screen,Urine Negative ng/ml (<300)
[2022-04-18 15:00] LABS: Methadone Screen,Urine Negative ng/ml (<300)
[2022-04-18 15:01] LABS: Opiate Screen,Urine Negative ng/ml (<300); Phencyclidine Screen,Urine Negative ng/ml (<25)
[2022-04-18 15:01] LABS: Activated Partial Thrombo Time 19.2 seconds (22.8-30.6)
[2022-04-18 15:24] LABS: Lymphocytes % 14 % (10-50); Monocytes % 6 % (2-9); Neutrophils % 80 % (42-76); Platelet Estimate Normal; RBC Morphology Normal; Total Cells Counted 100
[2022-04-18 15:29] LABS: Bacteria,Urine 4+ /lpf
[2022-04-18 16:16] VITALS: BP 109/66; PULSE 99; RESP 20; TEMP 38.2; O2SAT 99; BMI 27.4
== END 2022-04-18 17:07 | disposition left against medical advice (07) ==
LOC: OBOUT 13:09 → OB 13:09
PROVIDERS: PCP Nurse Practitioner; Visit Provider Nurse Practitioner Obstetrics & Gynecology
DX: O26.893 Other specified pregnancy related conditions, third trimester (principal); Z3A.30 30 weeks gestation of pregnancy; G43.909 Migraine, unspecified, not intractable, without status migrainosus; R11.2 Nausea with vomiting, unspecified
CPT/HCPCS: 59025; 80048; 80305; 81001; 83735; 84450; 84460; 84550; 85007; 85025; 85378; 85384; 85610; 85730; 87086; 96365; 96367; C9803; G0463; J2405; U0003; U0005

== ENCOUNTER → 2022-04-25 16:06 | Outpatient (CLI) | payer MEDICAID, SELFPAY ==
[2022-04-25 17:39] LABS: Anion Gap 11.9 mEq/L (5-15); Blood Urea Nitrogen 6 mg/dl (7-17); Calcium 8.8 mg/dl (8.4-10.2); Carbon Dioxide 25 mmol/L (22.0-30.0); Chloride 99 mmol/L (98-107); Estimated Glomerular Filt Rate 191 ml/min (>60); GFR (African American) 232 ML/MIN (>60); Glucose 80 mg/dl (74-100); Potassium 3.9 mmoL/L (3.5-5.1); Sodium 132 mmol/L (136-145)
== END ==
PROVIDERS: PCP Nurse Practitioner; Visit Provider Obstetrics & Gynecology
DX: Z34.90 Encounter for supervision of normal pregnancy, unspecified, unspecified trimester (principal)
CPT/HCPCS: 36415; 80048

== ENCOUNTER → 2022-05-02 08:42 | Outpatient (CLI) | payer MEDICAID, SELFPAY ==
[2022-05-02 09:27] LABS: Glucose,Fasting 83 mg/dl (74-100)
[2022-05-02 11:58] LABS: Glucose 1 Hour 148 mg/dL (74-100)
[2022-05-02 12:10] LABS: Glucose 2 Hour 126 mg/dL (74-100)
[2022-05-02 14:12] LABS: Glucose 3 Hour 127 mg/dL (74-100)
== END ==
PROVIDERS: PCP Nurse Practitioner; Visit Provider Nurse Practitioner Obstetrics & Gynecology
DX: Z34.90 Encounter for supervision of normal pregnancy, unspecified, unspecified trimester (principal); Z3A.28 28 weeks gestation of pregnancy
CPT/HCPCS: 36415; 82951

== ENCOUNTER → 2022-05-30 17:08 | Outpatient (CLI) | payer MEDICAID, SELFPAY | PROVIDERS: PCP Nurse Practitioner Obstetrics & Gynecology; Visit Provider Nurse Practitioner Obstetrics & Gynecology | DX: Z34.90 Encounter for supervision of normal pregnancy, unspecified, unspecified trimester (principal); Z3A.36 36 weeks gestation of pregnancy | CPT/HCPCS: 86403 ==

== ENCOUNTER → 2022-06-14 10:55 | Outpatient (CLI) | payer MEDICAID, SELFPAY ==
[2022-06-14 12:00] LABS: Basophils # 0.1 K/mm3 (0-0.2); Basophils % 0.5 % (0.1-2.0); Eosinophils % 0.3 % (0.1-12.0); Hematocrit 32.9 % (37.0-47.0); Hemoglobin 10.8 g/dL (12.2-16.2); Lymphocytes # 1.9 K/mm3 (0.7-4.5); Lymphocytes % 18.8 % (10-50); Mean Corpuscular HGB Conc 32.8 g/dL (31.8-35.4); Mean Corpuscular Hemoglobin 27.7 pg (27.0-31.2); Mean Corpuscular Volume 84.4 fl (81-99); Mean Platelet Volume 10.7 fl (7.4-10.4); Monocytes # 0.5 K/mm3 (0.1-1.0); Monocytes % 4.5 % (1.7-9.3); Neutrophils # 7.5 K/mm3 (1.8-7.8); Neutrophils % 75.8 % (37.0-80.0); Platelet Count 215 K/mm3 (142-424); Red Cell Distribution Width 17.4 % (11.5-17.5); White Blood Count 9.9 K/mm3 (4.8-10.8)
[2022-06-14 12:28] LABS: Chloride 103 mmol/L (98-107); Sodium 134 mmol/L (136-145)
[2022-06-14 12:29] LABS: Potassium 4.1 mmoL/L (3.5-5.1)
[2022-06-14 12:31] LABS: Alanine Aminotransferase 8 U/L (12-78); Albumin Level 3.1 g/dl (3.5-5.0); Albumin/Globulin Ratio 1.3 (1.1-1.8); Alkaline Phosphatase 178 U/L (38-126); Anion Gap 11.1 mEq/L (5-15); Aspartate Amino Transferase 23 U/L (14-36); Blood Urea Nitrogen 7 mg/dl (7-17); Carbon Dioxide 24 mmol/L (22.0-30.0); Estimated Glomerular Filt Rate 147 ml/min (>60); GFR (African American) 178 ML/MIN (>60); Globulin 2.4 g/dL (1.3-3.2); Total Protein,Serum 5.5 g/dl (6.3-8.2)
[2022-06-14 12:32] LABS: Bilirubin,Total < 0.1 mg/dl (0.2-1.3); Calcium 9.4 mg/dl (8.4-10.2); Glucose 71 mg/dl (74-100)
== END ==
PROVIDERS: PCP Nurse Practitioner; Visit Provider Nurse Practitioner Obstetrics & Gynecology
DX: Z34.90 Encounter for supervision of normal pregnancy, unspecified, unspecified trimester (principal); Z3A.38 38 weeks gestation of pregnancy
CPT/HCPCS: 36415; 80053; 85025

== ENCOUNTER 2022-06-18 05:27 | Inpatient (IN) | payer MEDICAID, SELFPAY ==
[2022-06-18] VITALS (7 sets, daily range): BP systolic 110–154; BP diastolic 45–97; PULSE 72–97; RESP 16–19; TEMP 36.3–37.2; O2SAT 95–98; BMI 29.9
[2022-06-18 06:07] LABS: Coronavirus 19, PCR Not Detected (NotDetected); Influenza A, PCR Not Detected (NotDetected); Influenza B, PCR Not Detected (NotDetected); Microscopic, Urine URINE MICROSCOPIC (MICROSCOPIC)
[2022-06-18 06:11] LABS: Basophils # 0.1 K/mm3 (0-0.2); Basophils % 0.6 % (0.1-2.0); Eosinophils # 0.1 K/mm3 (0.0-0.4); Eosinophils % 1.2 % (0.1-12.0); Hematocrit 34.2 % (37.0-47.0); Hemoglobin 11.2 g/dL (12.2-16.2); Lymphocytes # 2.3 K/mm3 (0.7-4.5); Lymphocytes % 20.5 % (10-50); Mean Corpuscular HGB Conc 32.6 g/dL (31.8-35.4); Mean Corpuscular Hemoglobin 27.7 pg (27.0-31.2); Mean Platelet Volume 11.3 fl (7.4-10.4); Monocytes # 0.5 K/mm3 (0.1-1.0); Monocytes % 4.5 % (1.7-9.3); Neutrophils # 8.3 K/mm3 (1.8-7.8); Neutrophils % 73.3 % (37.0-80.0); Platelet Count 234 K/mm3 (142-424); Red Blood Count 4.02 M/mm3 (4.20-5.40); Red Cell Distribution Width 17.8 % (11.5-17.5); White Blood Count 11.4 K/mm3 (4.8-10.8)
[2022-06-18 06:20] LABS: Anion Gap 14.9 mEq/L (5-15); Blood Urea Nitrogen 8 mg/dl (7-17); Calcium 8.8 mg/dl (8.4-10.2); Carbon Dioxide 21 mmol/L (22.0-30.0); Chloride 106 mmol/L (98-107); Creatinine Clearance Estimated 270 mL/min (50-200); Estimated Glomerular Filt Rate 190 ml/min (>60); GFR (African American) 230 ML/MIN (>60); Glucose 78 mg/dl (74-100); Potassium 3.9 mmoL/L (3.5-5.1); Sodium 138 mmol/L (136-145)
[2022-06-18 06:26] LABS: Appearance,Urine CLEAR (Clear); Bilirubin,Urine Negative (Negative); Blood, Urine TRACE-I (Negative); Color,Urine YELLOW (Yellow); Glucose,Urine (UA) Negative (Negative); Ketones,Urine Negative (Negative); Leukocyte Esterase,Urine Negative (Negative); Nitrate,Urine Negative (Negative); Protein,Urine Negative (Negative); Specific Gravity, Urine 1.015 (1.005-1.030); Urobilinogen,Urine 0.2 EU/dl (0.2)
[2022-06-18 06:49] LABS: Bacteria,Urine Trace /lpf; RBC,Urine Occasional #/hpf (0-3)
[2022-06-18 07:01] LABS: Amphetamine/Metha Screen,Urine Negative ng/ml (<1000)
[2022-06-18 07:02] LABS: Barbiturates Screen,Urine Negative ng/ml (<200); Benzodiazepines Screen,Urine Negative ng/ml (<200)
[2022-06-18 07:03] LABS: Cannabinoid Screen,Urine Negative ng/ml (<50)
[2022-06-18 07:04] LABS: Cocaine Screen,Urine Negative ng/ml (<300); Methadone Screen,Urine Negative ng/ml (<300)
[2022-06-18 07:05] LABS: Opiate Screen,Urine Negative ng/ml (<300); Phencyclidine Screen,Urine Negative ng/ml (<25)
--- NOTE | 2022-06-18 07:05 | P.PN_ITS ---
[facility] Surgical History History of delivery History of tonsillectomy Family History Other Thyroid disorder Social History Smoking Status: Former smoker second hand exposure: Yes alcohol intake: never substance use type: denies use current occupational status: employed Travel in the last 8 weeks: None household members: significant other housing: house current occupational exposures/hazards: No [facility] Anesthesia Checklist Patient Identification Patient Identification: Arm Band and Verbal (Name & ) Structural Data Admitted From: Home Planned Operative Procedure/s: C/S with tubal Consent for Planned Operative Procedure(s) Verified: Yes NPO Status Verified Time NPO: 00:00 Chart Verification Results Verified: CBC and BMP Airway Assessment C-Spine Mobility Assessed: Yes TMJ Mobility Assessed: Yes Dentition: Good Dentition Neurological Assessment Level of Consciousness: Awake Hx Seizures: No Numbness or tingling in extremities: No Anesthesia Plan Anesthesia Risk discussed: Yes Anesthesia Plan: Verified ASA Class: II Anesthesia Type: Spinal
--- NOTE | 2022-06-18 07:05 | HMH.PHAINT1 ---
Pharmacy Intervention Comments: MEDICATION RECONCILIATION COMPLETED ON PATIENT USING EXTERNAL FILL HISTORY FROM PHARMACY. -PHILIP THOMPSON, GHANSHYAMD
--- NOTE | 2022-06-18 07:21 | EXP.HP ---
History of Present Illness *Admission Date: 06/18/22 *Reason for visit:: Term , previous section, desire for sterilization *History of present illness: She is a 27-year-old 2 para 1 at 39+ weeks gestational age. She is had a previous section and is admitted for repeat lower segment transverse section at term. She also expressed desire for sterilization. [facility] Surgical History History of delivery History of tonsillectomy Family History Thyroid disorder Social History Smoking Status: Former smoker second hand exposure: Yes alcohol intake: never substance use type: denies use current occupational status: employed Travel in the last 8 weeks: None household members: significant other housing: house current occupational exposures/hazards: No Review of Systems Review of Systems Review of systems:: pertinent systems reviewed and negative unless documented below Meds Home Medications and Allergies Home Medications Medication Instructions Recorded Confirmed Type prenat.vits,mynor,osm-osin-jlcou 1 tab PO DAILY Supplement 12/05/21 06/18/22 History ferrous sulfate 325 mg (65 mg 325 mg PO DAILY Supplement 04/18/22 06/18/22 History iron) tablet paroxetine HCl 20 mg tablet (Paxil) 20 mg PO DAILY Anxiety 04/18/22 06/18/22 History eodfyyxrau-nzoqtvfmijtte-joitcsul 1 cap PO TIDP PRN Moderate Pain 06/18/22 06/18/22 History 50 mg-300 mg-40 mg capsule (Scale Score 5-6) (Fioricet) ondansetron 4 mg disintegrating 4 mg PO QIDP PRN Nausea And 06/18/22 06/18/22 History tablet Vomiting New Prescriptions to Start Prescriptions: Allergies Allergy/AdvReac Type Severity Reaction Status Date / Time No Known Allergies Allergy Verified 06/14/22 10:24 Exam Data for Last 24 hours Vital signs and Labs for Last 24 Hours: Temp Pulse Resp BP Pulse Ox 98.1 F 81 18 114/84 97 06/18/22 06:35 06/18/22 06:35 06/18/22 06:35 06/18/22 06:35 06/18/22 06:35 Laboratory Results - last 24 hr 06/18/22 05:35: SARS-CoV-2 (PCR) Not detected, Influenza A Untype (PCR) Not detected, Influenza Type B (PCR) Not detected 06/18/22 05:35: Urine Color Yellow, Urine Appearance Clear, Urine pH 6.0, Ur Specific [place] 1.015, Urine Protein Negative, Urine Glucose (UA) Negative, Urine Ketones Negative, Urine Blood Trace-i, Urine Nitrate Negative, Urine Bilirubin Negative, Urine Urobilinogen 0.2, Ur Leukocyte Esterase Negative, Urine RBC Occasional, Urine WBC None, Ur Squamous Epith Cells 3-5, Urine Bacteria Trace 06/18/22 05:35: Urine Opiates Screen Negative, Urine Methadone Screen Negative, Ur Barbituates Screen Negative, Ur Phencyclidine Scrn Negative, Ur Amphetamines Screen Negative, U Benzodiazepines Scrn Negative, Urine Cocaine Screen Negative, U Marijuana (THC) Screen Negative 06/18/22 06:00: WBC 11.4 H, RBC 4.02 L, Hgb 11.2 L, Hct 34.2 L, MCV 85.0, MCH 27.7, MCHC 32.6, RDW 17.8 H, Plt Count 234, MPV 11.3 H, Neut % (Auto) 73.3, Lymph % (Auto) 20.5, [place] % (Auto) 4.5, Eos % (Auto) 1.2, Baso % (Auto) 0.6, Neut # (Auto) 8.3 H, Lymph # (Auto) 2.3, [place] # (Auto) 0.5, Eos # (Auto) 0.1, Baso # (Auto) 0.1 06/18/22 06:00: Sodium 138, Potassium 3.9, Chloride 106, Carbon Dioxide 21 L, Anion Gap 14.9, BUN 8, Creatinine 0.40 L, Estimated Creat Clear 270, Estimated GFR 190, Est GFR ( Amer) 230, Glucose 78, Calcium 8.8 I & O for Last 24 hours: Intake & Output 06/15/22 06/16/22 06/17/22 06/18/22 11:59 11:59 11:59 11:59 Weight 180 lb Constitutional Constitutional: no acute distress *Routine HEENT Exam Head: Present normocephalic Eye: Present EOMI and PERRL ENT: Present mucous membranes moist *Routine Neck Exam Neck: Present supple; Absent lymphadenopathy *Routine Respiratory Exam Respiratory: Present CTA bilater
--- NOTE | 2022-06-18 09:04 | EXP.OP.NOTE ---
Date of procedure: 06/18/22 Pre-op Diagnosis:: Term , previous section, desire for sterilization Post-op Diagnosis:: Term , previous section desire for sterilization Procedure performed:: Repeat lower segment transverse section and bilateral salpingectomy Surgeon:: Korey French MD Genetics Nurse(s):: Dr. Erwin LAB TECHNICIAN:: Travis Fuentes Anesthesia: spinal Estimated blood loss (mL): 600 Clinical Note:: She is a 27-year-old 2 para 1 at 39+ weeks gestational age. She has had a previous section and also expressed desire for sterilization. The risks and benefits as well as the irreversibility of bilateral salpingectomy were discussed with the patient prior to surgery. Operative findings:: She delivered a liveborn male child at 8:21 AM on the morning of June 18, 2022. The baby had Apgars of 5 at 1 minute 7 at 5 minutes and 8 at 10 minutes. There was a loose nuchal cord. There was thin meconium. Operative note:: She was taken to the operating room where spinal anesthesia was found be adequate. She was prepped and draped in normal sterile fashion in the supine position with a leftward tilt. A Mendoza catheter was in the bladder. A Pfannenstiel skin incision was made with knife then carried through to the underlying layer of fascia with cautery. The fascia was opened in the midline with cautery and extended laterally using Herman scissors. Selam clamps were applied to the superior aspect of the fascial incision which was tented up and the underlying rectus muscles dissected off using cautery. The Selam clamps were then applied to the inferior aspect of the fascial incision which in a similar fashion was tented up and the underlying rectus muscles dissected off using cautery. The rectus muscles were then in the midline, the peritoneum identified, and entered sharply with Metzenbaum scissors. This incision was then extended superiorly and inferiorly with cautery. We had good visualization of the bladder inferiorly. The bladder peritoneum was then opened in the midline and extended laterally using Metzenbaum scissors. A bladder flap was created digitally. Transverse incision was made through the uterine muscle to the amnion. This incision was then extended laterally using fingers traction. The amnion was entered sharply with knife. There was thin meconium and copious vernix.. The 's head was then delivered atraumatically. A loose nuchal cord was reduced. This was followed by the anterior shoulder and the rest of the 's body atraumatically. The oropharynx and nasopharynx were bulb suctioned. The was then handed off to Dr. Aldana who assigned Apgars of 5 at 1 minute and 7 at 5 minutes and 8 at 10 minutes.. We then obtained cord blood. Using gentle traction on the cord and countertraction on the fundus I was able to easily deliver the placenta intact. It had a normal three-vessel cord. The uterus was then cleared of clots and debris . The uterus was then exteriorized from the abdominal cavity. The uterine incision was then closed using running 0 Vicryl suture in a locked fashion. A second layer of the same suture was used to imbricate the first layer. The bladder peritoneum was then closed using running 2-0 Vicryl suture in a locked fashion. The gutters and cul-de-sac were then cleared of clots and debris . Once again hemostasis was assured. We then performed a bilateral salpingectomy. The distal end of the tube was grasped with my fingers and using the endoseal I cut through the mesosalpinx. I then cut across the tube close to the cornua. This was similar performed on the opposite side. Tubes were sent to pathology. After once again assuring hemostasis the uterus was then returned to the abdominal cavity. The peritoneum was grasped with Maki clamps and closed using running 2-0 Vicryl suture. The rectus muscles were then reapproximated using running 0 Vicryl suture. The fascia wa
--- NOTE | 2022-06-18 09:07 | P.PNANES_ITS ---
[facility] Anesthesia Record Part I Anesthesia Record I Intake, IV Amount: 1,200 Estimated blood loss (mL): 600 Urine output (mL): 0 Blood Pressure: 115/45 SaO2: 97 Pulse Rate: 90 Respiratory Rate: 19 Temperature: 97.5 F Patient is:: Awake Stable to PACU at:: 09:00
--- NOTE | 2022-06-18 10:57 | SUR.OPER ---
0821-viable infant male born at this time
[2022-06-18 16:07] LABS: Microscopic,Cath URINE MICROSCOPIC (MICROSCOPIC)
[2022-06-18 18:03] LABS: Appearance,Urine/Cath CLEAR (Clear); Bilirubin,Cath Negative (Negative); Blood, Urine/Cath Negative (Negative); Color,Urine/Cath YELLOW (Yellow); Glucose,Urine/Cath (UA) Negative (Negative); Ketones,Urine/Cath Negative (Negative); Leukocyte Esterase,Cath Negative (Negative); Nitrate,Cath Negative (Negative); Protein,Urine/Cath Negative (Negative); Urobilinogen,Cath 0.2 EU/dl (0.2)
[2022-06-19 06:42] LABS: Hematocrit 30.7 % (37.0-47.0); Hemoglobin 10.2 g/dL (12.2-16.2)
[2022-06-19 08:08] VITALS: BP 113/80; PULSE 81; RESP 17; TEMP 36.7; O2SAT 97
--- NOTE | 2022-06-19 08:20 | EXP.ANES.II ---
[facility] Anesthesia Record Part II Anesthesia Record Part II Discharge Time: 09:30 Destination: Second Floor PACU nurse assessment reviewed?: Yes Patient Condition:: Good Anesthesia Complications:: None Swallowing reflex intact?: Yes Cyanosis?: No Blood Pressure: 115/64 Pulse Rate: 97 Temperature: 97.5 F Mental Status: Alert & Oriented Pain level:: 5 Nausea and/or vomitting:: None Intake, IV Amount: 1,500
[2022-06-19 08:21] VITALS: BP 115/64; PULSE 97; TEMP 36.4
--- NOTE | 2022-06-19 12:01 | EXP.DC.SUM ---
General Admission date:: 06/18/22 Discharge date: 06/19/22 HPI HPI HPI: She is a 27-year-old 2 para 1 at 39+ weeks gestational age. She is had a previous section and is admitted for repeat lower segment transverse section at term. She also expressed desire for sterilization. Hospital Course Hospital Course Hospital Course: She was admitted and underwent a primary lower segment transverse section and bilateral salpingectomy. She delivered a liveborn male child weighing 7 pounds 10 ounces. The baby had Apgars of 5 at 1 minute 7 at 5 minutes and 8 at 10 minutes. He was born at 8:21 AM on the morning of June 18, 2022. She has done well postoperatively and has remained afebrile throughout her hospitalization. She is eating and drinking and ambulating. She is pumping her breast. Her baby had thin meconium and was having some respiratory difficulty so he was transferred to for further care. On the morning of discharge he is doing well. He is no longer using oxygen. He will likely be discharged home tomorrow. As a result of the transfer to , the patient would like to be discharged home today. She had a tap block at the time of her section and her pain is well controlled. She does have some crampiness. She will be discharged home to follow-up with me in approximately 2 weeks time. She was given the usual instructions with respect to limiting her activity, driving and sexual activity. She was given instructions with respect to wound care. She was given a prescription for Percocet 5/325 number 20 tablets. Her condition on discharge is stable and improved. She has a positive blood, she is rubella immune and was group B streptococcus negative. Her blade grinder is Dr. Aldana. Exam Data for Last 24 hours Vital signs and Labs for Last 24 Hours: Temp Pulse Resp BP Pulse Ox 97.5 F L 97 H 17 115/64 97 06/19/22 08:21 06/19/22 08:21 06/19/22 08:08 06/19/22 08:21 06/19/22 08:08 Laboratory Results - last 24 hr 06/18/22 08:00: Urine Color Yellow, Urine Appearance Clear, Urine pH 6.0, Ur Specific [place] 1.020, Urine Protein Negative, Urine Glucose (UA) Negative, Urine Ketones Negative, Urine Blood Negative, Urine Nitrate Negative, Urine Bilirubin Negative, Urine Urobilinogen 0.2, Ur Leukocyte Esterase Negative, Urine RBC None, Urine WBC None, Ur Squamous Epith Cells None, Urine Bacteria None 06/19/22 06:35: Hgb 10.2 L, Hct 30.7 L I & O for Last 24 hours: Intake & Output 06/17/22 06/18/22 06/19/22 06/20/22 11:59 11:59 11:59 11:59 Intake Total 1200 / 1200 1500 / 1500 Output Total 250 / 250 1350 / 1350 Balance 950 / 950 150 / 150 Weight 180 lb Constitutional Constitutional: no acute distress *Routine HEENT Exam Head: Present normocephalic *Routine Neck Exam Neck: Present full ROM *Routine Respiratory Exam Respiratory: Present normal respiratory effort Results Data Completed and Pending Labs on day of discharge: Labs from last 24 hours 06/19/22 06/18/22 06:35 08:00 Hgb 10.2 L Hct 30.7 L Urine Color Yellow Urine Appearance Clear Urine pH 6.0 Ur Specific [place] 1.020 Urine Protein Negative Urine Glucose (UA) Negative Urine Ketones Negative Urine Blood Negative Urine Nitrate Negative Urine Bilirubin Negative Urine Urobilinogen 0.2 Ur Leukocyte Esterase Negative Urine RBC None Urine WBC None Ur Squamous Epith Cells None Urine Bacteria None DS: Diagnosis Discharge Diagnosis (1) History of delivery: Status: Acute (2) delivery delivered: Status: Acute (3) Sterilization: Status: Acute Meds Home Medications and Allergies Home Medications Medication Instructions Recorded Confirmed Type prenat.vits,mynor,zpo-xnzz-zoltr 1 tab PO DAILY Supplement 12/05/21 06/18/22 History ferrous sulfate 325 mg (65 mg 325 mg PO DAILY Supplement 04/18/22 06/18/22 History
== END 2022-06-19 13:00 | disposition home or self-care (01) | DRG 785 ==
PROVIDERS: Admitting Provider Nurse Practitioner Obstetrics & Gynecology; PCP Nurse Practitioner; Visit Provider Nurse Practitioner Obstetrics & Gynecology
PROC: 10D00Z1 Extraction of Products of Conception, Low, Open Approach (ICD-10-PCS; CPT 59514; principal; 2022-06-18 07:30)
DX: O34.211 Maternal care for low transverse scar from previous cesarean delivery (principal); N85.8 Other specified noninflammatory disorders of uterus; Z3A.39 39 weeks gestation of pregnancy; Z37.0 Single live birth; Z87.891 Personal history of nicotine dependence; Z30.2 Encounter for sterilization; O69.81X0 Labor and delivery complicated by cord around neck, without compression, not applicable or unspecified
CPT/HCPCS: 59514; 58700; 36415; 59025; 80048; 80305; 81001; 85014; 85018; 85025; 86850; C9290; C9803; U0003; U0005

== ENCOUNTER 2023-02-25 12:57 | Outpatient (CLI) | payer MEDICAID, SELFPAY ==
[2023-02-25 13:11] VITALS: BP 101/62; BP 116/87; PULSE 80; PULSE 90; RESP 16; O2SAT 100; O2SAT 98
== END 2023-02-25 14:10 | disposition home or self-care (01) ==
LOC: INF 12:58
PROVIDERS: PCP Nurse Practitioner; Visit Provider Nurse Practitioner
DX: D50.9 Iron deficiency anemia, unspecified (principal); R51.9 Headache, unspecified
CPT/HCPCS: 96374; Q0138

== ENCOUNTER 2023-03-04 12:58 | Outpatient (CLI) | payer MEDICAID, SELFPAY ==
[2023-03-04 13:10] VITALS: BP 138/61; PULSE 72; RESP 18; TEMP 36.4; O2SAT 97
--- NOTE | 2023-03-04 15:21 | PC.NURSE ---
03/04/2023 1335-Consulted 2nd RN to evaluate pt for IV access. Sallie Garcia RN attempted iv access x 1, without success. Pt refused to have any more attempts made to start and IV today. Pt requests to return a different day. Pt rescheduled for wed 03/06/23 and instructed to drink plenty of water prior to returning.
== END 2023-03-04 13:45 | disposition home or self-care (01) ==
LOC: INF 12:58
PROVIDERS: PCP Nurse Practitioner; Visit Provider Nurse Practitioner
DX: R51.9 Headache, unspecified (principal); D50.9 Iron deficiency anemia, unspecified
CPT/HCPCS: Q0138

== ENCOUNTER 2023-03-06 11:00 | Outpatient (CLI) | payer MEDICAID, SELFPAY ==
[2023-03-06 11:25] VITALS: BP 114/67; PULSE 76; RESP 18; O2SAT 99
[2023-03-06 11:45] VITALS: BP 106/64; PULSE 72; O2SAT 99
== END 2023-03-06 11:45 | disposition home or self-care (01) ==
LOC: INF 11:00
PROVIDERS: PCP Nurse Practitioner; Visit Provider Nurse Practitioner
DX: D50.9 Iron deficiency anemia, unspecified (principal)
CPT/HCPCS: 96374; Q0138

== ENCOUNTER 2024-02-16 11:47 | Emergency (ER) | payer MEDICAID, SELFPAY ==
[2024-02-16 12:12] VITALS: BP 113/69; PULSE 103; RESP 18; TEMP 37.1; O2SAT 100; BMI 29.7
--- NOTE | 2024-02-16 12:20 | ED_ITS ---
Discharge Plan Disposition Patient Disposition: Home, Self-Care Condition: Good Prescriptions Prescriptions: New rwgqghss-ypbcnvmnv-JT 3.5-10,000-1 mg/mL-unit/mL-% solution 4 drp Ear-Right Q8H 7 Days Qty: 10 0RF triamcinolone acetonide 0.1 % cream 1 applic topical BID PRN (Reason: itching) Qty: 30 0RF methylprednisolone 4 mg Tablets,Dose Pack 4 mg PO DIRECTED 6 Days Qty: 21 0RF Rx Instructions: Take 1 pack as directed for 6 days No Action prenat.vits,mynor,idv-lrrs-eotuj Tablet 1 tab PO DAILY paroxetine HCl [Paxil] 20 mg tablet 20 mg PO DAILY Qty: 30 11RF ferrous sulfate 325 mg (65 mg iron) tablet 325 mg PO DAILY dcmxyyyjxm-ioyuirnxbpdns-cgfb [Fioricet] 50-300-40 mg capsule 1 cap PO TIDP PRN (Reason: Moderate Pain (Scale Score 5-6)) Referrals Follow up/Referrals: Eulalio Wade MD [Primary Care Provider] - See instructions Activity Restrictions/Add. Instructions Additional Instructions/Restrictions: Drink plenty of fluids. Take tylenol or ibuprofen for pain or fever. Take the medications as directed. Instill the ear drops as directed. Follow up with your regular doctor. GO TO THE ER FOR ANY WORSENING SYMPTOMS Clinical Impressions Clinical Impression: External otitis of right ear, Sunburn Instructions Patient Instructions: How to Instill Ear Drops, Sunburn, DI for Otitis Externa, DI for Sunburn Discharge ED Provider: Jeronimo Montero [facility] General Stated complaint: pain in R ear, sunburn blisters on back Mode of Arrival: Ambulatory Source of Information: Patient Limitations: No Limitations Time Seen by Provider: 02/16/24 12:18 Description of Symptoms (Recalled from Triage Doc. by RN): pt c/o R ear pain, states doesn't feel like she can hear out of R ear. Also c/o blisters on her back from sunburn. HEENT Symptoms (Recalled from RN notes): Yes (C/o R ear pain) Resp Symptoms (Recalled from RN notes): No Skin Symptoms (Recalled from RN notes): No MS Symptoms (Recalled from RN notes): No Functional Status (Recalled from RN notes): n/a History of Present Illness Provider Complaint: She states that for the past 3 days she has had right ear pain with tannish discharge from that ear. She has been to the beach recently and she has been swimming a lot. She also has a bad sunburn on her back that is blistered. Related Data Home Medications Medication Instructions Recorded Confirmed prenat.vits,mynor,lvx-jlxh-rxkdw 1 tab PO DAILY Supplement 12/05/21 07/02/22 ferrous sulfate 325 mg (65 mg 325 mg PO DAILY Supplement 04/18/22 02/16/24 iron) tablet hutmxjhwzw-rahknnddahhgu-iixfqngp 1 cap PO TIDP PRN Moderate Pain 06/18/22 07/02/22 50 mg-300 mg-40 mg capsule (Scale Score 5-6) (Fioricet) Previous Rx's Medication Instructions Recorded paroxetine HCl 20 mg tablet (Paxil) 20 mg PO DAILY Anxiety #30 tabs 08/22/23 methylprednisolone 4 mg tablets in 4 mg PO DIRECTED 6 days #21 tabs 02/16/24 a dose pack gbqdzzpt-orpgmwuvm-idefqitln 3.5 4 drp Ear-Right Q8H 7 days #10 mL 02/16/24 mg/mL-10,000 unit/mL-1 % ear solution triamcinolone acetonide 0.1 % 1 applic topical BID PRN itching 02/16/24 topical cream #30 grams Allergies Allergy/AdvReac Type Severity Reaction Status Date / Time No Known Allergies Allergy Verified 07/02/22 10:25 Worker's Comp Is this a Worker's Comp case?: No [facility] Disclaimer: The information contained in this section may have been updated after the patient was seen, as this information can be updated by other users. Medical History Dizziness, nonspecific IUGR, Migraine Ocular migraine Possible exposure to STD Surgical History History of delivery History of tonsillectomy Family History Other Thyroid disorder Social History Smoking Status: Former smoker tobacco type: cigarettes packs per day: 1 second hand exposure: Yes alcohol intake: never substance use type: denies use current occupational status: employed Travel in the last 8 weeks: None household members: significant other housing: house current occupational exposures/hazards: No ROS Obtained: Yes All systems reviewed & no additional complaints except as documented Constitutional Constitutional: Denies chills and Denies fever(s) Eyes Eyes: Denies eye discharge ENT Ears, Nose, Mouth, and Throat: Denies dizziness, Reports otalgia and Denies sore throat Cardiovascular Cardiovascular: Denies chest pain Respiratory Respiratory: Denies shortness of breath, Denies chest congestion, Denies cough, Denies stridor and Denies wheezing Gastrointestinal Gastrointestingal: Denies nausea or vomiting Musculoskeletal Musculoskeletal: Reports system reviewed and no additional complaints, except as documented and Denies arthralgias Integumentary/Breasts Skin/Breast: Reports as per HPI and Reports rash Neurologic Neurologic: Denies dizziness and Denies paresthesias Allergic/Immunologic Allergic/Immunologic: Denies wheezing Physical Exam General General appearance: alert and in no apparent distress Head Head exam: atraumatic, normocephalic and normal inspection Eye Eye exam: Present normal appearance, PERRL and EOMI ENT ENT exam: Present normal oropharynx, mucous membranes moist and normal external ear exam Expanded ENT Exam TM/Canal exam: Right TM: erythema, canal discharge and canal tenderness Neck Neck exam: Present normal inspection, full ROM and trachea midline; Absent meningismus or lymphadenopathy Chest Chest inspection: Present normal inspection and symmetric chest wall rise; Absent tenderness Respiratory Respiratory exam: Present normal lung sounds bilaterally; Absent respiratory distress Cardiovascular Cardiovascular exam: Present regular rate and normal rhythm; Absent JVD Abdominal Exam Abdominal exam: Present soft and normal bowel sounds; Absent distention, tenderness or guarding Extremities Exam Extremities exam: Present normal inspection, full ROM and normal capillary refill; Absent calf tenderness Back Exam Back exam: Present normal inspection; Absent tenderness Neurological Exam Neurological exam: Present alert and oriented X3 Psychiatric Psychiatric exam: Present normal affect and normal mood Skin Skin exam: Present erythema (She has erythema of her upper back. ) Lymphatic Lymphatic Findings: no adenopathy Medical Decision Making Medical Records Medical records reviewed: No I reviewed the patient's medical records. Fredi Inquiry Pt receiving controlled substance: No Vital Signs: 02/16/24 12:12 Temperature 98.8 F Temperature Source Oral Pulse Rate [Right Radial] 103 H Respiratory Rate 18 Blood Pressure [Right Arm] 113/69 Blood Pressure Mean [Right Arm] 83 Blood Pressure Source [Right Arm] Automatic Cuff Blood Pressure Position [Right Arm] Sitting 02 Sat by Pulse Oximetry 100 Oxygen Delivery Method Room Air
[2024-02-16 12:36] VITALS: BP 113/69; PULSE 103; RESP 18; TEMP 37.1; O2SAT 100
== END 2024-02-16 12:36 | disposition home or self-care (01) ==
PROVIDERS: Emergency Provider Nurse Practitioner Family; PCP Internal Medicine Adolescent Medicine
DX: H60.91 Unspecified otitis externa, right ear (principal); L55.9 Sunburn, unspecified; H92.01 Otalgia, right ear
CPT/HCPCS: 99204; 99212; G0463

== ENCOUNTER 2024-04-07 15:23 | Outpatient (CLI) | payer MEDICAID, SELFPAY ==
--- NOTE | 2024-04-07 15:28 | US_ITS ---
PROCEDURE: US TRANSVAGINAL CLINICAL INDICATION: Heavy Periods COMPARISON: No exams were available for comparison FINDINGS: Transvaginal sonographic images of the pelvis were obtained. UTERUS: 8.2cm x 5.4cmx 4.6 cm retroverted with a combined endometrial thickness of 7.8mm. There is a posterior fibroid measuring 1.4 cm x 1.8 cm x 1.6 cm. LEFT OVARY: 2.8 cmx1.6x1.6cm with a volume of 3.6ml. There are multiple follicles within the left ovary. RIGHT OVARY: 3.1cmx 2.1cmx2.1cm with a volume of 7.2ml. There are multiple peripheral follicles. Both ovaries are seen and appear polycystic. Doppler flow to both ovaries are seen. There is a small amount of fluid in the cul-de-sac. IMPRESSION: 1. Retroverted uterus normal in shape and size. The endometrium measures 7.8 mm. 2. There is a posterior fibroid measuring 1.8 cm. 3. Both ovaries are seen and appear polycystic. 4. There is a small amount of fluid in the cul-de-sac. Dictated by: Korey French MD 04/07/2024 16:26 Korey French MD in OV 04/07/2024 16:26
== END 2024-04-07 23:59 | disposition home or self-care (01) ==
LOC: RAD 15:23
PROVIDERS: PCP Internal Medicine Adolescent Medicine; Visit Provider Nurse Practitioner Obstetrics & Gynecology
DX: N92.0 Excessive and frequent menstruation with regular cycle (principal)
CPT/HCPCS: 76830

== ENCOUNTER 2024-05-06 14:49 | Outpatient (CLI) | payer MEDICAID, SELFPAY ==
[2024-05-06 15:28] LABS: Basophils # 0.1 K/mm3 (0-0.2); Basophils % 0.8 % (0.1-2.0); Eosinophils # 0.2 K/mm3 (0.0-0.4); Eosinophils % 2.4 % (0.1-12.0); Hematocrit 35.6 % (37.0-47.0); Hemoglobin 10.9 g/dL (12.2-16.2); Lymphocytes # 2.4 K/mm3 (0.7-4.5); Lymphocytes % 23.9 % (10-50); Mean Corpuscular HGB Conc 30.5 g/dL (31.8-35.4); Mean Corpuscular Hemoglobin 24.6 pg (27.0-31.2); Mean Corpuscular Volume 80.6 fl (81-99); Mean Platelet Volume 7.5 fl (7.4-10.4); Monocytes # 0.4 K/mm3 (0.1-1.0); Monocytes % 4.2 % (1.7-9.3); Neutrophils # 6.8 K/mm3 (1.8-7.8); Neutrophils % 68.8 % (37.0-80.0); Platelet Count 418 K/mm3 (142-424); Red Blood Count 4.42 M/mm3 (4.20-5.40); White Blood Count 9.9 K/mm3 (4.8-10.8)
[2024-05-06 15:32] LABS: Albumin Level 4.4 g/dl (3.5-5.0); Chloride 102 mmol/L (98-107); Potassium 3.6 mmoL/L (3.5-5.1); Sodium 138 mmol/L (136-145)
[2024-05-06 15:35] LABS: Alanine Aminotransferase 16 U/L (12-78); Albumin/Globulin Ratio 1.5 (1.1-1.8); Alkaline Phosphatase 67 U/L (38-126); Anion Gap 9.6 mEq/L (5-15); Aspartate Amino Transferase 22 U/L (14-36); Bilirubin,Total 0.4 mg/dl (0.2-1.3); Blood Urea Nitrogen 6 mg/dl (7-17); Calcium 9.7 mg/dl (8.4-10.2); Carbon Dioxide 30 mmol/L (22.0-30.0); Estimated Glomerular Filt Rate 118 ml/min (>60); GFR (African American) 143 ML/MIN (>60); Globulin 2.9 g/dL (1.3-3.2); Glucose 88 mg/dl (74-100); Total Protein,Serum 7.3 g/dl (6.3-8.2)
[2024-05-06 15:54] LABS: HCG,Quantitative < 2 mIU/ml (0-5.42)
== END 2024-05-06 23:59 | disposition home or self-care (01) ==
LOC: PREOP 14:50
PROVIDERS: PCP Internal Medicine Adolescent Medicine; Visit Provider Nurse Practitioner Obstetrics & Gynecology
DX: N92.0 Excessive and frequent menstruation with regular cycle (principal)
CPT/HCPCS: 80053; 84702; 85025

== ENCOUNTER 2024-05-11 07:18 | Day surgery (SDC) | payer MEDICAID, SELFPAY ==
[2024-05-06 15:19] VITALS: BMI 29.9
[2024-05-11] VITALS (10 sets, daily range): BP systolic 99–122; BP diastolic 62–79; PULSE 70–97; RESP 14–18; TEMP 36.2–36.6; O2SAT 95–100
--- NOTE | 2024-05-11 07:44 | EXP.ANES.CKL ---
[facility] Disclaimer: The information contained in this section may have been updated after the patient was seen, as this information can be updated by other users. Medical History Urinary tract infection Anxiety Irritable bowel syndrome (IBS) History of anemia IUGR, Dizziness, nonspecific Possible exposure to STD Migraine Ocular migraine Surgical History History of delivery History of tonsillectomy Family History Grandmother Thyroid disorder Other Lung cancer Social History Smoking Status: Current every day smoker tobacco type: cigarettes packs per day: 1 second hand exposure: Yes alcohol intake: never substance use type: denies use current occupational status: unemployed Travel in the last 8 weeks: Inside the [facility] household members: significant other housing: house current occupational exposures/hazards: No [facility] Anesthesia Checklist Patient Identification Patient Identification: Arm Band Structural Data Admitted From: Home Planned Operative Procedure/s: Hysteroscopy, D&C, Novasure Ablation Consent for Planned Operative Procedure(s) Verified: Yes Verified Documents: Surgical Consent and History and Physical NPO Status Verified Time NPO: 00:00 Additional verifications Anesthesia Reactions: No Hx Blood Transfusions: No Blood Transfusion Reaction: No Airway Assessment Mallampati Score:: Class II C-Spine Mobility Assessed: Yes TMJ Mobility Assessed: Yes Dentition: Good Dentition Neurological Assessment Level of Consciousness: Awake, Alert and Appropriate Anesthesia Plan Anesthesia Risk discussed: Yes Anesthesia Plan: Verified ASA Class: II Anesthesia Type: General
[2024-05-11] MEDS: CEFAZOLIN SODIUM 2 GM in 0.9 % SODIUM CHLORIDE 100 ML IV (08:50)
[2024-05-11] MEDS: ROPIVACAINE 0.5% 30ML VIAL 150 MG (08:59)
[2024-05-11] MEDS: SODIUM CHLORIDE IRRIG SOLUTION 3,000 ML 100 ML IR (09:00)
--- NOTE | 2024-05-11 09:18 | EXP.ANES.I ---
[facility] Anesthesia Record Part I Anesthesia Record I Intake, IV Amount: 900 Hydration: Adequate Estimated blood loss (mL): 14 Urine output (mL): 0 Blood Products used (#): none Blood Pressure: 99/62 SaO2: 96 Pulse Rate: 70 Airway Patency: Patent Respiratory Rate: 14 Temperature: 97.3 F Patient is:: Drowsy and Stable Stable to PACU at:: 09:14
--- NOTE | 2024-05-11 10:54 | EXP.OP.NOTE ---
Date of procedure: 05/11/24 Pre-op Diagnosis:: Menorrhagia, labial cyst Post-op Diagnosis:: Menorrhagia, labial cyst Procedure performed:: Hysteroscopy, dilation and curettage, NovaSure ablation. Surgeon:: Korey French MD SALES ADMINISTRATION MANAGER:: Jeronimo Pickard Anesthesia: LMA Estimated blood loss (mL): 25 Clinical Note:: She is a 28-year-old lady who has extremely heavy periods. A transvaginal ultrasound revealed a small fibroid otherwise normal ultrasound. As result of that she was offered endometrial ablation. Operative findings:: She had a normal-appearing endometrial cavity that sounded to 9 cm. The endometrial cavity itself was 6 cm long and the width was 4.7 cm. Operative note:: She was taken to the operating room where LMA anesthesia was found be adequate. She was prepped and draped in the normal sterile fashion in the lithotomy position. A weighted speculum was placed in the vagina and the anterior lip of the cervix was grasped with a tenaculum. She had a small 5 mm left labial cyst near the introitus and I was able to remove this in its entirety with Metzenbaum scissors. It contained a greenish fluid. I placed a single 4-0 Monocryl suture to reapproximate the skin at the cervix was then dilated to approximately 6 mm. I then inserted a hysteroscope into the uterine cavity and the findings were as previously dictated. I then performed a gentle curettage with a medium curette. I then sounded the uterus and determine the length of the uterus. I then inserted the NovaSure device and determine the width of the endometrial cavity. The length was 6 cm and the width was 4.7 cm this was placed into the NovaSure device. I then ran the device through its program. I further inspected the endometrial cavity and was found to be completely charred. I then injected 30 cc of 0.5% ropivacaine at the 3:00, 5:00, 7:00, and 9:00 positions of the cervix. She tolerated procedure well and was taken to the recovery room in excellent condition. All sponge and instrument counts were correct. The estimated blood loss was less than 25 cc. Condition: stable Disposition: PACU Specimens:: Endometrial curettings Complications:: None
--- NOTE | 2024-05-11 14:33 | P.PNANES_ITS ---
[facility] Anesthesia Record Part II Anesthesia Record Part II Discharge Time: 09:44 Destination: Surgical Day Care (OP Surgery) PACU nurse assessment reviewed?: Yes Patient Condition:: Good Anesthesia Complications:: None Swallowing reflex intact?: Yes Airway Patency: Patent Cyanosis?: No Blood Pressure: 119/79 SaO2: 96 Respiratory Rate: 18 Pulse Rate: 83 Temperature: 97.2 F Mental Status: Alert & Oriented Pain level:: 0 Nausea and/or vomitting:: None Intake, IV Amount: 0 Hydration: Adequate
== END 2024-05-11 10:16 | disposition home or self-care (01) ==
PROVIDERS: PCP Internal Medicine Adolescent Medicine; Visit Provider Nurse Practitioner Obstetrics & Gynecology
PROC: 0U5B8ZZ Destruction of Endometrium, Via Natural or Artificial Opening Endoscopic (ICD-10-PCS; CPT 58563; principal; 2024-05-11 08:45)
DX: N92.0 Excessive and frequent menstruation with regular cycle (principal); N76.4 Abscess of vulva
CPT/HCPCS: 58563; 96374; J0690; J1100; J2250; J2405; J3010

== ENCOUNTER 2024-09-28 15:04 | Outpatient (CLI) | payer MEDICAID, SELFPAY ==
--- NOTE | 2024-09-28 15:05 | US_ITS ---
PROCEDURE INFORMATION: Exam: US Left Breast, Complete Exam date and time: 09/28/2024 3:09 PM Age: 29 years old Clinical indication: Pain in the left breast, above the nipple. TECHNIQUE: Imaging protocol: Complete ultrasound of all four quadrants of the left breast and the retroareolar regions, including ultrasound of the axilla when performed. COMPARISON: No relevant prior studies available. FINDINGS: ULTRASOUND: Breast ultrasound findings: Ultrasound the left breast is performed. In the retroareolar region, there is no underlying mass, shadowing, or distortion. There are scattered simple and minimally complicated cysts, the largest measuring 1.0 x 1.3 x 0.4 cm, in the left breast 1 o'clock axis 2 cm from the nipple. No suspicious solid mass, shadowing, or distortion. No axillary adenopathy. IMPRESSION: Cystic findings in the left breast. Ultrasound follow-up of the left breast in 6 months is recommended to ensure stability of the scattered cystic areas. Continued clinical monitoring for any worsening pain or development of a suspicious breast lump is recommended. If there is any palpable area of concern, a diagnostic mammogram would be recommended. ASSESSMENT: BI-RADS Category 3: Probably benign.
== END 2024-09-28 23:59 | disposition home or self-care (01) ==
LOC: RAD 15:05
PROVIDERS: PCP Internal Medicine Adolescent Medicine; Visit Provider Nurse Practitioner Obstetrics & Gynecology
DX: Z12.31 Encounter for screening mammogram for malignant neoplasm of breast (principal)
CPT/HCPCS: 76641

== ENCOUNTER 2025-01-06 15:15 | Outpatient (CLI) | payer MEDICAID, SELFPAY ==
--- NOTE | 2025-01-06 15:18 | MR_ITS ---
PROCEDURE INFORMATION: Exam: MR Head Without and With Contrast Exam date and time: 01/06/2025 3:23 PM Age: 29 years old Clinical indication: Pain; Headache; Migraine; Additional info: Chronic headaches and migraines TECHNIQUE: Imaging protocol: Magnetic resonance imaging of the head without and with contrast. Contrast material: PROHANCE; Contrast volume: 16 ml; Contrast route: IV; COMPARISON: CT - HEADWO CT head/brain wo con 08/31/2018 10:38 AM FINDINGS: Brain: Normal. No acute infarct. No hemorrhage. No significant white matter disease. No edema. Cerebral ventricles: Normal. No ventriculomegaly. Bones: Unremarkable. Paranasal sinuses: Normal as visualized. No acute sinusitis. Mastoid air cells: Normal as visualized. No mastoid effusion. Orbital cavities: Unremarkable. Soft tissues: Unremarkable. IMPRESSION: No acute process, mass, or bleed.
[2025-01-06] MEDS: GADOTERIDOL INJ 20ML SYRINGE 16 ML IV (16:14)
== END 2025-01-06 23:59 | disposition home or self-care (01) ==
LOC: RAD 15:16
PROVIDERS: PCP Internal Medicine Adolescent Medicine; Visit Provider Internal Medicine Adolescent Medicine
DX: R51.9 Headache, unspecified (principal)
CPT/HCPCS: 70553; A9576